=== PATIENT | female | born 1940 | race Caucasian/White ===

== ENCOUNTER 2017-12-22 21:32 | Emergency (ER) | payer MEDICARE, MEDICAID, SELFPAY ==
[2017-12-22 21:36] VITALS: BP 113/68; PULSE 80; RESP 18; TEMP 36.9; O2SAT 93; BMI 32.8
--- NOTE | 2017-12-22 21:49 | ED.VISSUMM ---
- ER Visit Summary Date of Service: 12/22/17 Chief Complaint: At [facility] with injury to right wrist left elbow and apparently right lower extremity History of Present Illness: The patient is a 77 F history is limited secondary dementia was sent to the emergency room by ambulance for evaluation after fall. She denies head pain. Denies visual disturbance. She denies any neck pain. 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 She pointed to her right wrist and elbow where she is injured. Reportedly she injured her leg. She denies any leg pain. She states she has bilateral knee pain. She is on no anticoagulant. Physical Examination: Vital signs are normal. Head is atraumatic normocephalic. Pupils are equal round reactive. Extraocular muscles are intact. TMs are pearly white with landmarks noted. Nares patent with no drainage. Posterior pharynx without erythema or exudate. Uvula is midline. There is no dysphonia or dysphasia. Trachea is midline. There is no stridor with auscultation of the neck. No pain the patient's cervical spine. Heart is regular without murmur, gallop or rub. S1 and S2 are normal. Lungs are clear to auscultation with good movement of air bilaterally. She is alert but not oriented. Motor sensory intact. DTRs are symmetric. No clonus or Babinski sign. Cranial 2 through 12 intact. Logrolling of the right and left lower extremity causes no discomfort. Examination of the knees reveals no evidence of trauma. The patella is not ballotable. Is no palpable effusion. There is no laxity with varus valgus stress testing. Negative Lynn's test. Negative modified Richa's test. She has full extension to 180? and flexion to 90? without discomfort. Examination of the ankles reveals no evidence of trauma with no pain to palpation. Examination the right upper extremity reveals a skin tear over the distal ulna. This is approximately 2 cm in size. Median, radial and ulnar function intact. Examination of left upper extremity reveals a skin tear proximal 3 cm left elbow. She has full active range of motion. Is no pain the patient over the lateral medial epicondyle appears no pain the patient over the olecranon process. Is no pain the patient of the radial head with supination pronation. Axillary, median, radial and ulnar function intact. Test Results: None are indicated Emergency Department Course and Treatment: Immunization status is unknown Adacel was ordered. Wound care and appropriate home-going instructions to [facility] Treatment Plan: Wound care Disposition: Return to nursing facility Impression: 1. Mechanical fall 2. History of frequent falls 3. History dementia 4. Skin tear right wrist 5. Skin tear left elbow This note was generated with [employer] dictation software. It may contain incorrect words, spelling, and punctuation that were not noted in review of the chart prior to signing ED Disposition - Plan for ED Patient: Disposition: Half-Way Facility Chief Complaint: Fall Instructions: ED [facility] Referrals: Flavio Thakur MD [Primary Care Provider] - As Needed
--- NOTE | 2017-12-22 21:55 | ED.DCSUM_ITS ---
- ER Visit Summary Date of Service: 12/22/17 Chief Complaint: At [facility] with injury to right wrist left elbow and apparently right lower extremity History of Present Illness: The patient is a 77 F history is limited secondary dementia was sent to the emergency room by ambulance for evaluation after fall. She denies head pain. Denies visual disturbance. She denies any neck pain. 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 She pointed to her right wrist and elbow where she is injured. Reportedly she injured her leg. She denies any leg pain. She states she has bilateral knee pain. She is on no anticoagulant. Physical Examination: Vital signs are normal. Head is atraumatic normocephalic. Pupils are equal round reactive. Extraocular muscles are intact. TMs are pearly white with landmarks noted. Nares patent with no drainage. Posterior pharynx without erythema or exudate. Uvula is midline. There is no dysphonia or dysphasia. Trachea is midline. There is no stridor with auscultation of the neck. No pain the patient's cervical spine. Heart is regular without murmur, gallop or rub. S1 and S2 are normal. Lungs are clear to auscultation with good movement of air bilaterally. She is alert but not oriented. Motor sensory intact. DTRs are symmetric. No clonus or Babinski sign. Cranial 2 through 12 intact. Logrolling of the right and left lower extremity causes no discomfort. Examination of the knees reveals no evidence of trauma. The patella is not ballotable. Is no palpable effusion. There is no laxity with varus valgus stress testing. Negative Lynn's test. Negative modified Richa's test. She has full extension to 180? and flexion to 90? without discomfort. Examination of the ankles reveals no evidence of trauma with no pain to palpation. Examination the right upper extremity reveals a skin tear over the distal ulna. This is approximately 2 cm in size. Median, radial and ulnar function intact. Examination of left upper extremity reveals a skin tear proximal 3 cm left elbow. She has full active range of motion. Is no pain the patient over the lateral medial epicondyle appears no pain the patient over the olecranon process. Is no pain the patient of the radial head with supination pronation. Axillary, median, radial and ulnar function intact. Test Results: None are indicated Emergency Department Course and Treatment: Immunization status is unknown Adacel was ordered. Wound care and appropriate home-going instructions to [facility] Treatment Plan: Wound care Disposition: Return to nursing facility Impression: 1. Mechanical fall 2. History of frequent falls 3. History dementia 4. Skin tear right wrist 5. Skin tear left elbow This note was generated with [employer] dictation software. It may contain incorrect words, spelling, and punctuation that were not noted in review of the chart prior to signing ED Disposition - Plan for ED Patient: Disposition: Long-Term Facility Chief Complaint: Fall Instructions: ED [facility] Referrals: Flavio Thakur MD [Primary Care Provider] - As Needed
[2017-12-22] MEDS: Diphth,Pertuss(Acell),Tet Vac 0.5 ML Vial IM (22:23)
== END 2017-12-22 23:31 | disposition skilled nursing facility (03) ==
PROVIDERS: Emergency Provider Emergency Medicine; Family Provider Family Medicine; PCP Family Medicine
DX: S61.511A Laceration without foreign body of right wrist, initial encounter (principal); S51.012A Laceration without foreign body of left elbow, initial encounter; W19.XXXA Unspecified fall, initial encounter; Y93.9 Activity, unspecified; Y92.89 Other specified places as the place of occurrence of the external cause; Y99.9 Unspecified external cause status; F03.90 Unspecified dementia, unspecified severity, without behavioral disturbance, psychotic disturbance, mood disturbance, and anxiety; R29.6 Repeated falls; E11.9 Type 2 diabetes mellitus without complications; E03.9 Hypothyroidism, unspecified
CPT/HCPCS: 90471; 90715; 99282

== ENCOUNTER 2018-01-14 17:46 | Emergency (ER) | payer MEDICARE, MEDICAID, SELFPAY ==
[2018-01-14 17:51] VITALS: BP 70/45; PULSE 88; RESP 14; TEMP 36.6; O2SAT 96
[2018-01-14 17:54] VITALS: BP 101/88; PULSE 85; RESP 11; O2SAT 96
[2018-01-14 18:50] LABS: BUN 58 mg/dL (7-18); BUN/Creat Ratio 27.8 RATIO (10-20); Calcium,Total 8.5 mg/dL (8.5-10.1); Chloride 110 mmol/L (98-107); Creatinine, Serum 2.09 mg/dL (0.55-1.02); EST Glomerular Filtration Rate 24 mL/min (>60); Est Glom Filt Rate - Afr Amer 30 mL/min (>60); Estimated Creatinine Clearance 28.81 ml/min; Glucose 126 mg/dL (74-106); Potassium 4.1 mmol/L (3.5-5.1); Sodium Level 143 mmol/L (136-145)
[2018-01-14 18:51] LABS: Anion Gap 6 (5-15)
[2018-01-14 18:54] LABS: Absolute Lymphocyte Count 1.57 X10^3/ul (0.83-4.51); Absolute Neutrophil Count 3.6 X10^3/uL (2.0-7.7); Basophil# 0.01 X10^3/uL; Basophil% 0.2 % (0-1); Eosinophil# 0.18 X10^3/uL; Eosinophils% 3.1 % (0-5); Hematocrit 28.2 % (37-47); Hemoglobin 8.2 g/dl (12.0-15.0); Lymphocyte # 1.57 X10^3/ul (4.0); Lymphocyte % 27.4 % (19-41); Mean Corp Hgb Conc 29.1 g/gl (32-36); Mean Platelet Vol. 11.3 fl (6.2-12.0); Monocyte# 0.37 X10^3/uL; Monocyte% 6.5 % (0-10); Neutrophil # 3.59 X10^3/uL (2.7-7.7); Neutrophil % 62.6 % (47-70); Platelet Count 185 K/mm3 (150-450); RBC Distribution Width CV 16.8 % (11.6-14.6); RBC Distribution Width SD 48.9 fl (35.1-43.9); Red Blood Count 3.57 M/mm3 (4.2-5.4); White Blood Count 5.7 K/mm3 (4.4-11.0)
[2018-01-14 18:56] VITALS: BP 118/71; PULSE 82; RESP 15; O2SAT 93
[2018-01-14 18:57] LABS: Differential Indicated SCAN CRITERIA MET; POSITIVE COUNT NO; POSITIVE DIFFERENTIAL NO; POSITIVE MORPHOLOGY YES
[2018-01-14 19:06] VITALS: PULSE 80; RESP 17; O2SAT 94
[2018-01-14 19:15] LABS: Anisocytosis RARE; Microcytosis RARE; Platelet Estimate ADEQUATE (ADEQ); Platelet Morphology LARGE
--- NOTE | 2018-01-14 19:31 | ED.DCSUM_ITS ---
- ER Visit Summary Date of Service: 01/14/18 Chief Complaint: Sent to ER for low hemoglobin. History of Present Illness: The patient is a 77 F who is demented and only oriented to person. She responded no to all questions asked. Review of old records indicates history of diabetes, dehydration, hypothyroidism and acute renal failure. Physical Examination: Pleasantly elderly woman with dementia. HEENT exam is remarkable for pallor to the conjunctiva otherwise normal. Heart is regular without murmur, gallop or rub. S1 and S2 are normal. Lungs are clear to auscultation with good movement of air bilaterally. Abdomen is soft nontender. Bowel sounds are present normal. Neurologic exam is nonfocal. Test Results: H&H is 8.2 and 28.2 with an MCV of 79. Emergency Department Course and Treatment: CBC was obtained and patient was typed and screened. Treatment Plan: Since hemoglobin is greater than 8 she is asymptomatic plan is to treat with iron tablets and outpatient follow-up Disposition: Discharged to nursing facility Impression: Microcytic anemia 9 history of dementia History diabetes History of hypothyroidism This note was generated with [employer] dictation software. It may contain incorrect words, spelling, and punctuation that were not noted in review of the chart prior to signing ED Disposition - Plan for ED Patient: Disposition: Home or Assisted Living Chief Complaint: Abn Labs Instructions: ED Anemia Iron Deficiency Prescriptions: Ferrous Sulfate 325 mg PO BIDCM #60 tab Referrals: Flavio Thakur MD [Primary Care Provider] - As Needed
--- NOTE | 2018-01-14 19:44 | ED.RN ---
NURSE TO NURSE REPORT GIVEN TO FAISAL, DISCUSSED NEW DIAGNOSIS, NEW RX, NURSE DENIES FURTHER QUESTIONS.
[2018-01-14 19:45] VITALS: BP 123/72; PULSE 84; RESP 16; O2SAT 95
== END 2018-01-14 20:17 | disposition home or self-care (01) ==
PROVIDERS: Emergency Provider Emergency Medicine; Family Provider Family Medicine; PCP Family Medicine
DX: D50.9 Iron deficiency anemia, unspecified (principal); F03.90 Unspecified dementia, unspecified severity, without behavioral disturbance, psychotic disturbance, mood disturbance, and anxiety; E11.9 Type 2 diabetes mellitus without complications; E03.9 Hypothyroidism, unspecified; N18.6 End stage renal disease
CPT/HCPCS: 80048; 85025; 86850; 86900; 99285; A4216

== ENCOUNTER 2018-03-21 16:14 | Emergency (ER) | payer MEDICARE, MEDICAID, SELFPAY ==
--- NOTE | 2018-03-21 16:14 | DT_ITS ---
This patient was seen during an EMR downtime March 17, 2018 - March 24, 2018. This patient may have a combination of paper and electronic documentation or all paper documentation. All documentation is viewable within the e-chart portion of [employer] for each patient visit.
--- NOTE | 2018-03-21 17:45 | CT_ITS ---
STUDY: CT BRAIN WITHOUT CONTRAST REASON FOR EXAM: Female, 77 years old. Trauma RADIATION DOSAGE (If Supplied By Facility): CTDIvol = ( 60.81 ) mGy, DLP = ( 1021.47 ) mGycm TECHNIQUE: Transaxial CT imaging of the brain was performed without administration of intravenous contrast material. Individualized dose optimization techniques were used for this CT. COMPARISON: None. FINDINGS: There is mild scalp swelling of the left parietal region. There is hyperostosis frontalis internus. There is mild cerebral atrophy with widening of the extra-axial spaces and ventricular dilatation. There are areas of decreased attenuation within the white matter tracts of the supratentorial brain, consistent with microvascular disease changes. There is an old lacunar infarct of the left insular lobe. Normal basal ganglia and thalami. Normal brainstem. Normal cerebellum. There is no intracranial hemorrhage. There are no findings of an acute ischemic infarction. Normal visualized paranasal sinuses. CT/Brain/Head without Contrast IMPRESSION: Chronic involutional changes of the brain. 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 Mild scalp swelling of the left parietal region. There is no intracranial hemorrhage or evidence of acute infarct. Electronically Signed: Dominick Estrada MD at 18:09 EDT , Service support ,
--- NOTE | 2018-03-21 18:00 | RAD_ITS ---
STUDY: X-RAY - LEFT HAND REASON FOR EXAM: Female, 77 years old. Trauma, left hand and wrist pain TECHNIQUE: 3 view(s) of the hand. COMPARISON: None. FINDINGS: The bones are osteopenic. There is a nondisplaced oblique fracture of the proximal to mid shaft of the fifth proximal phalanx. There are mild degenerative changes of the second through fifth PIP and DIP joints. The soft tissue structures are unremarkable. IMPRESSION: Nondisplaced oblique fracture of the proximal to mid shaft of the fifth proximal phalanx. Mild degenerative changes of the second through fifth PIP and DIP joints. Generalized osteopenia. Electronically Signed: Dominick Estrada MD at 18:53 EDT , Service support , STUDY: X-RAY - LEFT WRIST REASON FOR EXAM: Female, 77 years old. Trauma TECHNIQUE: 3 view(s) of the wrist were obtained. COMPARISON: None. FINDINGS: The bones are osteopenic. Normal radiocarpal articulation. Normal distal radioulnar articulation. Normal carpal bones. Normal carpal articulations. Normal carpometacarpal articulation of the thumb. Normal second through fifth carpometacarpal articulations. Normal visualized metacarpal bones. Arterial calcifications are seen in the distal forearm. RAD/Wrist min 3 Views IMPRESSION: Generalized osteopenia. There is no evidence of fracture, dislocation, or significant degenerative disease. Electronically Signed: Dominick Estrada MD at 18:56 EDT , Service support ,
--- NOTE | 2018-03-21 18:00 | RAD_ITS ---
STUDY: X-RAY - LEFT HAND REASON FOR EXAM: Female, 77 years old. Trauma, left hand and wrist pain TECHNIQUE: 3 view(s) of the hand. COMPARISON: None. FINDINGS: The bones are osteopenic. There is a nondisplaced oblique fracture of the proximal to mid shaft of the fifth proximal phalanx. There are mild degenerative changes of the second through fifth PIP and DIP joints. The soft tissue structures are unremarkable. IMPRESSION: Nondisplaced oblique fracture of the proximal to mid shaft of the fifth proximal phalanx. Mild degenerative changes of the second through fifth PIP and DIP joints. Generalized osteopenia. Electronically Signed: Dominick Estrada MD at 18:53 EDT , Service support , STUDY: X-RAY - LEFT WRIST REASON FOR EXAM: Female, 77 years old. Trauma TECHNIQUE: 3 view(s) of the wrist were obtained. COMPARISON: None. FINDINGS: The bones are osteopenic. Normal radiocarpal articulation. Normal distal radioulnar articulation. Normal carpal bones. Normal carpal articulations. Normal carpometacarpal articulation of the thumb. Normal second through fifth carpometacarpal articulations. Normal visualized metacarpal bones. Arterial calcifications are seen in the distal forearm. RAD/Hand Min 3 Views IMPRESSION: Generalized osteopenia. There is no evidence of fracture, dislocation, or significant degenerative disease. Electronically Signed: Dominick Estrada MD at 18:56 EDT , Service support ,
== END 2018-03-21 20:35 | disposition home or self-care (01) ==
LOC: ED 03-22 11:39
PROVIDERS: Emergency Provider Emergency Medicine; Family Provider Family Medicine; PCP Family Medicine
DX: S01.01XA Laceration without foreign body of scalp, initial encounter (principal); S62.617A Displaced fracture of proximal phalanx of left little finger, initial encounter for closed fracture; W18.39XA Other fall on same level, initial encounter; Y93.E9 Activity, other interior property and clothing maintenance; Y92.007 Garden or yard of unspecified non-institutional (private) residence as the place of occurrence of the external cause; F03.90 Unspecified dementia, unspecified severity, without behavioral disturbance, psychotic disturbance, mood disturbance, and anxiety; E11.9 Type 2 diabetes mellitus without complications; E78.00 Pure hypercholesterolemia, unspecified; I12.9 Hypertensive chronic kidney disease with stage 1 through stage 4 chronic kidney disease, or unspecified chronic kidney disease; N18.9 Chronic kidney disease, unspecified; E03.9 Hypothyroidism, unspecified; F32.9 Major depressive disorder, single episode, unspecified; Z79.899 Other long term (current) drug therapy
CPT/HCPCS: 12001; 70450; 73110; 73130; 90471; 90715; 99285

== ENCOUNTER 2018-03-31 20:58 | Emergency (ER) | payer MEDICARE, MEDICAID, SELFPAY ==
[2018-03-31 20:59] VITALS: BP 134/76; BP 143/77; PULSE 83; PULSE 85; RESP 18; TEMP 36.7; O2SAT 93; BMI 32.8
--- NOTE | 2018-03-31 21:16 | CT_ITS ---
STUDY: CT BRAIN WITHOUT CONTRAST REASON FOR EXAM: Female, 77 years old. Head injury RADIATION DOSAGE (If Supplied By Facility): CTDIvol = ( 44.99 ) mGy, DLP = ( 745.49 ) mGycm TECHNIQUE: Transaxial CT imaging of the brain was performed without administration of intravenous contrast material. Individualized dose optimization techniques were used for this CT. COMPARISON: None. FINDINGS: There is a hematoma scalp overlying the right frontal bone without associated skull fracture. Calcification of cavernous carotid and vertebral arteries. Mild atrophy and periventricular white matter ischemic changes. Tiny old lacunar infarct in left basal ganglia.. Normal brainstem. Normal cerebellum. There is no intracranial hemorrhage. There are no findings of an acute ischemic infarction. Normal visualized paranasal sinuses. CT/Brain/Head without Contrast IMPRESSION: Hematoma in the scalp overlying the right frontal bone without skull fracture or acute intracranial bleed. Mild atrophy and periventricular white matter ischemic changes Electronically Signed: Lazaro Crespo MD at 22:09 EDT , Service support ,
--- NOTE | 2018-03-31 21:16 | CT_ITS ---
STUDY: CT CERVICAL SPINE WITHOUT CONTRAST REASON FOR EXAM: Female, 77 years old. Trauma RADIATION DOSAGE (If Supplied By Facility): CTDIvol = ( 16.41 ) mGy, DLP = ( 302.54 ) mGycm TECHNIQUE: High resolution transaxial imaging was performed without contrast material. Sagittal and coronal images were reconstructed. Individualized dose optimization techniques were used for this CT. COMPARISON: None FINDINGS: Normal craniovertebral junction. Normal anterior atlantoaxial articulation. Normal odontoid process. Decreased cervical lordosis. Normal vertebral bodies and posterior osseous elements. C2-3: Normal endplates. Normal disc height and tiny central disc protrusion. Normal central canal. Severe left neuroforaminal stenosis secondary to bony hypertrophy C3-4: Normal endplates. Normal disc height and morphology. Normal central canal . Severe bilateral neuroforaminal stenosis secondary to bony hypertrophy. C4-5: Grade 1 spondylolisthesis. Mild endplate spurring. Normal disc height and morphology. Mild narrowing the central canal. Severe bilateral neural foraminal stenosis secondary to bony projection C5-6: Mild endplate spurring.. Normal disc height and tiny left paracentral disc protrusion. Mild narrowing of the central canal. Severe bilateral neuroforaminal stenosis secondary to bony hypertrophy. C6-7: Mild endplate spurring. Normal disc height and morphology. Normal central canal. Severe right neuroforaminal stenosis secondary to bony hypertrophy C7-T1: Normal endplates. Normal disc height and morphology. Normal central canal and intervertebral neuroforamina. Normal visualized soft tissue structures. CT/Spine Cervical without Contras IMPRESSION: No evidence for acute fracture or subluxation. . Moderate spondylosis and multilevel spinal stenosis secondary to bony hypertrophy. Electronically Signed: Lazaro Crespo MD at 22:05 EDT , Service support ,
--- NOTE | 2018-03-31 21:40 | RAD_ITS ---
STUDY: X-RAY - PELVIS REASON FOR EXAM: Female, 77 years old. Trauma TECHNIQUE: One view of the pelvis was obtained. COMPARISON: None. FINDINGS: There is a non-specific bowel gas pattern. Multiple small calcified densities within the pelvis likely representing intrauterine fibroids Normal bilateral iliac wings, sacroiliac joints and visualized sacrum. Normal visualized bilateral superior and inferior pubic rami. Normal pubic symphysis. Normal ischial tuberosities. Normal visualized right femoral head. Normal right acetabulum. Normal right hip joint. Normal visualized left femoral head. Normal left acetabulum. Normal left hip joint. RAD/Pelvis 1 or 2 Views IMPRESSION: No evidence for acute pelvic or hip fractures. Electronically Signed: Lazaro Crespo MD at 22:07 EDT , Service support ,
--- NOTE | 2018-03-31 22:41 | ED.VISSUMM ---
- ER Visit Summary Date of Service: 03/31/18 Chief Complaint: [Fall] History of Present Illness: The patient is a 77 F [patient had a mechanical [facility] at the [facility]. She tripped and fell head over her walker. She hit her head. There was no reported loss of consciousness. She complaining of head and neck pain. History is limited and provided entirely by EMS as the patient does not remember.] Physical Examination: [] Large contusion right forehead Pulses equal and reactive extraocular eye movements are intact TMs are clear Mild tenderness at C4 the neck Chest nontender clear to auscultation bilaterally regular rate and rhythm Abdomen soft and nontender Mild tenderness in the right pelvis Full range of motion of the right lower extremity without pain including at the hip and pelvis The metric radial and DP pulses Alert and oriented ?2 no focal deficits She has skin tears on the right forearm that are dressed and bandaged Test Results: [] Emergency Department Course and Treatment: [CT of the head and neck were obtained and showed no acute process. X-ray of the pelvis shows no acute process. Patient will be discharged back home. They were given precautions for which to return.] Treatment Plan: [] Disposition: [Discharge] Impression: [Closed head injury 2. Skin tear] This note was generated with [employer] dictation software. It may contain incorrect words, spelling, and punctuation that were not noted in review of the chart prior to signing ED Disposition - Plan for ED Patient: Chief Complaint: Fall Referrals: Flavio Thakur MD [Primary Care Provider] -
--- NOTE | 2018-03-31 22:44 | ED.DEP ---
ED Disposition - Plan for ED Patient: Chief Complaint: Fall Instructions: ED Mechanical Fall, ED Head Injury Closed Referrals: Flavio Thakur MD [Primary Care Provider] - 3-5 Days
[2018-03-31 23:41] VITALS: BP 127/88; PULSE 60; RESP 18; O2SAT 95
== END 2018-03-31 23:41 | disposition home or self-care (01) ==
PROVIDERS: Emergency Provider Emergency Medicine; Family Provider Family Medicine; PCP Family Medicine
DX: S09.90XA Unspecified injury of head, initial encounter (principal); S51.811A Laceration without foreign body of right forearm, initial encounter; W01.10XA Fall on same level from slipping, tripping and stumbling with subsequent striking against unspecified object, initial encounter; Y93.89 Activity, other specified; Y92.129 Unspecified place in nursing home as the place of occurrence of the external cause; Y99.9 Unspecified external cause status
CPT/HCPCS: 70450; 72125; 72170; 99284